=== PATIENT | female | born 1935 | race Caucasian/White ===

== ENCOUNTER 2017-12-28 10:58 | Emergency (ER) | payer MEDICARE ==
[~2017-12-28] VITALS: Ht 165.1 cm; Wt 96.2 kg
[~2017-12-28 10:58] MED LIST: ALPR.25; ALPR.25 PO; ATEN25 PO; CALCAVITD PO; CIPR500 PO; CRANBERRY250 MG; ENAL10 PO; HYDCHL12.5 PO; LEVSOD100 PO; LISI5; METF500C PO; METO10 PO; OMEP20ER PO; ONDA8; OXYACE5T PO; PROBIOTIC1 EAC1; SIMV40 PO; [UNRECOGNIZED DRUG - REMARK]
[2017-12-28] MEDS ORDERED: CEPH250A PO (11:23)
[2017-12-28 11:25] LABS: BASOPHILS ABSOLUTE AUTO 0.02 K/mm3 (0.00-0.23); BASOPHILS PERCENT AUTO 0 % (0-2); EOSINOPHILS ABSOLUTE AUTO 0.01 K/mm3 (0.00-0.68); EOSINOPHILS PERCENT AUTO 0 % (0-6); Hematocrit 39.7 % (33.0-51.0); Hemoglobin 13.5 g/dL (11.5-16.0); IMMATURE GRAN ABSOLUTE AUTO 0.02 K/mm3 (0.00-0.10); IMMATURE GRAN PERCENT AUTO 0 % (0-1); LYMPHOCYTES ABSOLUTE AUTO 1.07 K/mm3 (0.84-5.20); LYMPHOCYTES PERCENT AUTO 16 % (21-46); MONOCYTES ABSOLUTE AUTO 0.78 K/mm3 (0.16-1.47); MONOCYTES PERCENT AUTO 12 % (4-13); Mean Corpuscular HGB 27.9 pg (26.0-34.0); Mean Corpuscular Volume 82 fL (80-100); Mean Platelet Volume 8.7 fL (9.1-12.4); NEUTROPHILS ABSOLUTE AUTO 4.75 K/mm3 (1.96-9.15); NEUTROPHILS PERCENT AUTO 71 % (41-73); Platelet Count 199 K/mm3 (150-400); RDW Coefficient Variation 13.6 % (11.7-14.2); RDW Standard Deviation 40.5 fL (35.1-46.3); Red Blood Cell Count 4.84 M/mm3 (3.80-5.20); White Blood Cell Count 6.65 K/mm3 (4.00-11.30)
[2017-12-28 11:41] LABS: Alanine Aminotransfer (ALT/SGP 20 U/L (12-78); Albumin, Blood 3.3 g/dL (3.4-5.0); Albumin/Globulin Ratio 0.8 (0.8-1.8); Alk Phos 68 U/L (50-136); Anion Gap 10 mmol/L (6-16); Aspartate Aminotrans (AST/SGOT 26 U/L (12-37); Bilirubin, Total 0.4 mg/dL (0.1-1.0); Blood Urea Nitrogen 12 mg/dL (8-24); Bun/Creatinine Ratio 19.9 (12.0-20.0); CO2, Blood 29 mmol/L (21-32); Calcium, Blood 8.5 mg/dL (8.5-10.1); Chloride, Blood 89 mmol/L (98-108); Glomerular Filtration Rate >60 (60-); Glucose, Blood 109 mg/dL (70-99); Potassium, Blood 3.3 mmol/L (3.5-5.5); Sodium, Blood 128 mmol/L (136-145); Total Protein, Blood 7.3 g/dL (6.4-8.2); Troponin I <0.015 ng/mL (0.000-0.040)
[2017-12-28 13:15] LABS: Source, Urine Clean Catch
[2017-12-28 13:19] LABS: Bilirubin, Urine Neg (Neg); Blood, Urine 2+ (Neg); Glucose Qualitative, Urine Neg (Neg); Ketones, Urine 2+ (Neg); Leukocyte Esterase, Urine 3+ (Neg); Nitrite, Urine Neg (Neg); Protein, Urine Neg (Neg); Specific Gravity, Urine 1.005 (1.003-1.022); Urobilinogen, Urine NORM (Normal)
[2017-12-28 13:22] LABS: Appearance, Urine Cloudy (Clear); Color, Urine Yellow (P-Yellow)
[2017-12-28 13:26] LABS: Bacteria Few /hpf; Red Blood Cells, Urine 0-2 /hpf (0-2); Squamous Epithelial Cells Many /hpf (Few)
== END 2017-12-28 14:01 | disposition home or self-care (01) ==
LOC: ER 10:58
PROVIDERS: Emergency Medicine
DX: R10.84 Generalized abdominal pain (principal); E87.1 Hypo-osmolality and hyponatremia; E87.6 Hypokalemia; I10 Essential (primary) hypertension; Z87.891 Personal history of nicotine dependence; Z88.2 Allergy status to sulfonamides; Z88.8 Allergy status to other drugs, medicaments and biological substances; Z88.5 Allergy status to narcotic agent; Z88.1 Allergy status to other antibiotic agents; Z79.899 Other long term (current) drug therapy; Z79.84 Long term (current) use of oral hypoglycemic drugs; Z79.2 Long term (current) use of antibiotics
CPT/HCPCS: 36415; 74177; 80053; 81001; 83690; 84484; 85025; 87077; 87086; 87186; 93005; 93010; 96360; 96361; 99285-25; J7030; Q9967

== ENCOUNTER 2019-02-11 16:05 | Emergency (ER) | payer MEDICARE ==
[~2019-02-11] VITALS: Ht 167.6 cm; Wt 94.8 kg
[~2019-02-11 16:05] MED LIST changes: +CEPH250A PO; -HYDCHL12.5 PO; -LEVSOD100 PO; -METF500C PO
== END 2019-02-11 22:58 | disposition home or self-care (01) ==
LOC: ER 16:05
DX: S00.83XA Contusion of other part of head, initial encounter (principal); S50.312A Abrasion of left elbow, initial encounter; M25.552 Pain in left hip; I10 Essential (primary) hypertension; F41.0 Panic disorder [episodic paroxysmal anxiety]; Z87.891 Personal history of nicotine dependence; Z88.8 Allergy status to other drugs, medicaments and biological substances; Z88.1 Allergy status to other antibiotic agents; Z88.2 Allergy status to sulfonamides; Z88.5 Allergy status to narcotic agent; Z79.899 Other long term (current) drug therapy; Z79.84 Long term (current) use of oral hypoglycemic drugs; W01.10XA Fall on same level from slipping, tripping and stumbling with subsequent striking against unspecified object, initial encounter
CPT/HCPCS: 72192; 73502; 73600; 96374; 96375; 96376; 99284-25; A9270; A9270-GY; J1170; J2405

== ENCOUNTER 2019-02-22 10:48 | Inpatient (IN) | payer MEDICARE ==
[~2019-02-22] VITALS: Ht 165.1 cm; Wt 93.4 kg
[2019-02-22] MEDS ORDERED: LEVSOD100 PO (13:23)
[2019-02-22] MEDS ORDERED: METF500 PO (13:24)
[2019-02-22] MEDS ORDERED: HYDCHL12.5 PO (13:24)
[2019-02-22] MEDS ORDERED: LOSARTAN POTASS50 MG PO (13:25)
[2019-02-22] MEDS ORDERED: METO50ER PO (13:25)
[2019-02-22 13:34] LABS: BASOPHILS ABSOLUTE AUTO 0.04 K/mm3 (0.00-0.23); BASOPHILS PERCENT AUTO 0 % (0-2); EOSINOPHILS ABSOLUTE AUTO 0.02 K/mm3 (0.00-0.68); EOSINOPHILS PERCENT AUTO 0 % (0-6); Hematocrit 39.7 % (33.0-51.0); Hemoglobin 13.2 g/dL (11.5-16.0); IMMATURE GRAN ABSOLUTE AUTO 0.04 K/mm3 (0.00-0.10); IMMATURE GRAN PERCENT AUTO 0 % (0-1); LYMPHOCYTES ABSOLUTE AUTO 1.39 K/mm3 (0.84-5.20); LYMPHOCYTES PERCENT AUTO 12 % (21-46); MONOCYTES ABSOLUTE AUTO 0.72 K/mm3 (0.16-1.47); MONOCYTES PERCENT AUTO 6 % (4-13); Mean Corpuscular HGB 28.4 pg (26.0-34.0); Mean Corpuscular HGB Conc 33.2 g/dL (31.5-36.5); Mean Corpuscular Volume 86 fL (80-100); Mean Platelet Volume 9.1 fL (9.1-12.4); NEUTROPHILS ABSOLUTE AUTO 9.43 K/mm3 (1.96-9.15); NEUTROPHILS PERCENT AUTO 81 % (41-73); Platelet Count 289 K/mm3 (150-400); RDW Coefficient Variation 14.2 % (11.7-14.2); RDW Standard Deviation 43.9 fL (35.1-46.3); Red Blood Cell Count 4.64 M/mm3 (3.80-5.20); White Blood Cell Count 11.64 K/mm3 (4.00-11.30)
[2019-02-22 13:49] LABS: International Normalized Ratio 0.98; Prothrombin Time Results 10.4 Sec (9.7-11.5)
[2019-02-22 13:53] LABS: Alanine Aminotransfer (ALT/SGP 16 U/L (12-78); Albumin, Blood 3.5 g/dL (3.4-5.0); Albumin/Globulin Ratio 1.1 (0.8-1.8); Alk Phos 64 U/L (50-136); Anion Gap 7 mmol/L (6-16); Aspartate Aminotrans (AST/SGOT 16 U/L (12-37); Bilirubin, Total 0.6 mg/dL (0.1-1.0); Blood Urea Nitrogen 23 mg/dL (8-24); Bun/Creatinine Ratio 29.9 (12.0-20.0); CO2, Blood 29 mmol/L (21-32); Calcium, Blood 9.5 mg/dL (8.5-10.1); Chloride, Blood 97 mmol/L (98-108); Creatinine, Blood 0.77 mg/dL (0.40-1.00); Globulin, Blood 3.2 g/dL (2.2-4.0); Glomerular Filtration Rate >60 (60-); Glucose, Blood 96 mg/dL (70-99); Potassium, Blood 3.4 mmol/L (3.5-5.5); Sodium, Blood 133 mmol/L (136-145); Total Protein, Blood 6.7 g/dL (6.4-8.2)
--- NOTE | 2019-02-22 18:05 | NUR ---
SUMMARY PT ARRIVED TO UNIT FROM ED. TRANSFERRED TO BED FROM [facility] USING SLIDER SHEET. PT TOO PAINFUL TO ROLL AND REMOVE ALL EXTRA LINENS. HAS BRUISING TO L FOREHEAD, LUE AND LLE. LLE EXTERNALLY ROTATED. PEDAL PULSES THIN AND THREADY. SKIN WARM AND PINK. LCA. HRR. MEDICATED PER ORDERS FOR PAIN W/25 MCG FENTANYL IV. FAMILY AT BEDSIDE. CALL LIGHT IN REACH.
--- NOTE | 2019-02-22 20:44 | NUR ---
PT TO IMAGING.
--- NOTE | 2019-02-23 00:26 | NUR ---
DR TODD BEEN NOTIFIED OF CT RESULTS. NO NEW ORDERS.
[2019-02-23 04:36] LABS: BASOPHILS ABSOLUTE AUTO 0.03 K/mm3 (0.00-0.23); BASOPHILS PERCENT AUTO 0 % (0-2); EOSINOPHILS ABSOLUTE AUTO 0.03 K/mm3 (0.00-0.68); EOSINOPHILS PERCENT AUTO 0 % (0-6); Hematocrit 36.7 % (33.0-51.0); Hemoglobin 12.1 g/dL (11.5-16.0); IMMATURE GRAN ABSOLUTE AUTO 0.02 K/mm3 (0.00-0.10); IMMATURE GRAN PERCENT AUTO 0 % (0-1); LYMPHOCYTES ABSOLUTE AUTO 1.59 K/mm3 (0.84-5.20); LYMPHOCYTES PERCENT AUTO 22 % (21-46); MONOCYTES ABSOLUTE AUTO 0.62 K/mm3 (0.16-1.47); MONOCYTES PERCENT AUTO 9 % (4-13); Mean Corpuscular HGB 27.9 pg (26.0-34.0); Mean Corpuscular Volume 85 fL (80-100); Mean Platelet Volume 8.9 fL (9.1-12.4); NEUTROPHILS ABSOLUTE AUTO 4.95 K/mm3 (1.96-9.15); NEUTROPHILS PERCENT AUTO 68 % (41-73); Platelet Count 253 K/mm3 (150-400); RDW Coefficient Variation 14.1 % (11.7-14.2); RDW Standard Deviation 43.6 fL (35.1-46.3); Red Blood Cell Count 4.34 M/mm3 (3.80-5.20); White Blood Cell Count 7.24 K/mm3 (4.00-11.30)
[2019-02-23 04:53] LABS: Anion Gap 6 mmol/L (6-16); Blood Urea Nitrogen 20 mg/dL (8-24); Bun/Creatinine Ratio 31.1 (12.0-20.0); CO2, Blood 29 mmol/L (21-32); Calcium, Blood 8.9 mg/dL (8.5-10.1); Chloride, Blood 99 mmol/L (98-108); Creatinine, Blood 0.64 mg/dL (0.40-1.00); Glomerular Filtration Rate >60 (60-); Glucose, Blood 96 mg/dL (70-99); Potassium, Blood 3.4 mmol/L (3.5-5.5); Sodium, Blood 134 mmol/L (136-145)
--- NOTE | 2019-02-23 05:03 | NUR ---
SHIFT SUMMARY PT HAD CT EARLIER THIS SHIFT. PT BEEN MED PRN PAIN, REPORTS MUCH MORE COMF THIS AM. PT WAS CONFUSED AT FIRST WHEN WAKING UP BUT REORIENTS WELL. BED ALARM IN PLACE. FAMILY STAYED OVERNIGHT, ALSO RESTED WELL OFF AND ON. PT DID NOT ATTEMPT OOB. PT HAS 18G IV IN R HAND INFUSING WELL. PT BEEN NPO AFTER MN. DR TODD WAS NOTIFIED OF CT RESULT. PT/FAMILY ASSISTED WITH ADL'S PRN. PAS/BED ALARM IN PLACE.
--- NOTE | 2019-02-23 05:31 | NUR ---
PT MEDS HELD, BEEN NPO AFTER MN.
--- NOTE | 2019-02-23 13:41 | NUR ---
INTO [facility] VIA BED. PT REPORTS 8 LEFT HIP PAIN-DESPITE BEING MEDICATED WITH FENTANYL JUST PRIOR TO DEPARTURE TO [facility]-SEE EMAR. HISTORY AND ALLERGIES REVIEWED. NPO STATUS CONFIRMED.LUNGS CLEAR-SATS>90% ON RA.
--- NOTE | 2019-02-23 14:27 | NUR ---
PT REPORTS 8/10 LEFT HIP PAIN. MED WITH OXYCODONE 10 MG PO FOR PAIN-SEE EMAR.
--- NOTE | 2019-02-23 18:49 | NUR ---
PT ARRIVED TO UNIT FROM OR AT 1845. A&O, VSS, AND DECLINES ANY PAIN OR NAUSEA. FAMILY AT BEDSIDE AND CALL LIGHT WITHIN REACH.
[2019-02-24 04:25] LABS: BASOPHILS ABSOLUTE AUTO 0.04 K/mm3 (0.00-0.23); BASOPHILS PERCENT AUTO 1 % (0-2); EOSINOPHILS ABSOLUTE AUTO 0.06 K/mm3 (0.00-0.68); EOSINOPHILS PERCENT AUTO 1 % (0-6); Hemoglobin 10.1 g/dL (11.5-16.0); IMMATURE GRAN ABSOLUTE AUTO 0.03 K/mm3 (0.00-0.10); IMMATURE GRAN PERCENT AUTO 0 % (0-1); LYMPHOCYTES PERCENT AUTO 15 % (21-46); MONOCYTES ABSOLUTE AUTO 0.81 K/mm3 (0.16-1.47); MONOCYTES PERCENT AUTO 10 % (4-13); Mean Corpuscular HGB 27.9 pg (26.0-34.0); Mean Corpuscular HGB Conc 32.6 g/dL (31.5-36.5); Mean Corpuscular Volume 86 fL (80-100); Mean Platelet Volume 9.5 fL (9.1-12.4); NEUTROPHILS ABSOLUTE AUTO 5.68 K/mm3 (1.96-9.15); NEUTROPHILS PERCENT AUTO 73 % (41-73); Platelet Count 212 K/mm3 (150-400); RDW Coefficient Variation 14.2 % (11.7-14.2); RDW Standard Deviation 44.3 fL (35.1-46.3); Red Blood Cell Count 3.62 M/mm3 (3.80-5.20); White Blood Cell Count 7.82 K/mm3 (4.00-11.30)
[2019-02-24 04:47] LABS: Albumin, Blood 2.6 g/dL (3.4-5.0); Anion Gap 4 mmol/L (6-16); Blood Urea Nitrogen 15 mg/dL (8-24); Bun/Creatinine Ratio 22.8 (12.0-20.0); CO2, Blood 29 mmol/L (21-32); Calcium, Blood 7.8 mg/dL (8.5-10.1); Chloride, Blood 100 mmol/L (98-108); Creatinine, Blood 0.66 mg/dL (0.40-1.00); Glomerular Filtration Rate >60 (60-); Glucose, Blood 122 mg/dL (70-99); Magnesium, Blood 1.4 mg/dL (1.6-2.4); Phosphorus, Blood 2.6 mg/dL (2.5-4.9); Potassium, Blood 3.1 mmol/L (3.5-5.5); Sodium, Blood 133 mmol/L (136-145)
--- NOTE | 2019-02-24 08:27 | NUR ---
SUMMARY PT DID WELL THROUGH THE NIGHT. DRSG REMAINS C/D/I. CIRC WNL. PAIN MANAGED WITH PO PAIN MEDS. PT IS TOLERATING PO INTAKE. PT STOOD AT THE BEDSIDE WITH 2 PERSON ASSIST. WESTLEY REMAINS IN PLACE. PT EDUCATED ABOUT THERAPY EXPECTATIONS THIS AM. IS AT THE BEDSIDE. CALL LIGHT IN REACH. REPORT GIVEN EUNICE
--- NOTE | 2019-02-24 13:46 | NUR ---
Initial Visit: Pt post op hip fracture repair. Pt is alert, oriented, appropriate. She states that her pain is increased right now, due to working out with physical therapy. She describes herself as "determined," and "tough." She states that her granddaughter will be able to help her at home; it does not appear that she is willing to go to SNF for rehab. She reports that her granddaughter is a IRRIGATION INSTALLATION SPECIALIST and will "make sure I do my stuff." Reviewed advance directives. She has heard of the term. Purpose of document is discussed. Educated on appointment of healthcare internet sales representative within the document. She is wanting to review this later, when she feels better. Nurse is in the room to give her pain medication. Will remain available.
--- NOTE | 2019-02-24 16:02 | NUR ---
TOPICS WERE DISCUSSED WITH MARK MORE THAN ONCE, SHE STATED REMEMBERING DISCUSSING THEM BEFORE AFTER THE TOPIC WAS REITERATED. SHE RESPONDED WELL TO SUGGESTION AND APPRECIATED EXPLANATIONS TO THE "WHY" BEHIND RECOMMENDATIONS, POLICIES, ETC.
--- NOTE | 2019-02-24 16:05 | NUR ---
SHIFT SUMMARY: MARK IS HERE AFTER EXPERIENCING A FALL IN THE PARKING [place] RESULTING IN A SMALL BRAIN BLEED AND FRACTURED LEFT FEMORAL HEAD WHICH WAS SURGICALLY REPAIRED BY DR. PADRON WITH A LEFT GEMINI HIP ARTHROPLASTY. SHE IS ALERT AND ORIENTED, JUST STATES THAT SHE ISN'T SURE OF THE DAY BUT KNOWS THAT IT IS FEBRUARY 2019. SHE HAS HAD SOME DIFFICULTIES WITH NAUSEA THIS SHIFT REQUIRING TWO DOSES OF ZOFRAN. SHE DID WORK WITH THERAPY. HER HAS BEEN AT BEDSIDE EXCEPT WHEN THERAPY WORKS WITH HER STATING THAT IT BOTHERS HIM WHEN THEY ARE WORKING WITH HER. SHE REQUIRIES ONE TO TWO PEOPLE TO HELP HER TRANSFER, MODERATE ASSIST. SHE REQUIRES TWO PEOPLE TO ASSIST HER TO REPOSITION IN BED. CHRISTY REMAINS IN PLACE DUE TO HER CONCERNS THAT SHE WOULD NOT BE ABLE TO MAKE IT TO THE BEDSIDE COMMODE BEFORE HAVING AN ACCIDENT. SCDs IN PLACE. SHE IS LYING IN BED WITH HER CALL LIGHT IN REACH. SHE USES HER CALL LIGHT APPROPRIATELY. SHE IS ABLE TO MAKE HER NEEDS KNOWN.
[2019-02-25 04:16] LABS: BASOPHILS ABSOLUTE AUTO 0.05 K/mm3 (0.00-0.23); BASOPHILS PERCENT AUTO 1 % (0-2); EOSINOPHILS ABSOLUTE AUTO 0.08 K/mm3 (0.00-0.68); EOSINOPHILS PERCENT AUTO 1 % (0-6); Hematocrit 31.6 % (33.0-51.0); Hemoglobin 10.2 g/dL (11.5-16.0); IMMATURE GRAN ABSOLUTE AUTO 0.03 K/mm3 (0.00-0.10); IMMATURE GRAN PERCENT AUTO 0 % (0-1); LYMPHOCYTES ABSOLUTE AUTO 1.07 K/mm3 (0.84-5.20); LYMPHOCYTES PERCENT AUTO 11 % (21-46); MONOCYTES ABSOLUTE AUTO 1.01 K/mm3 (0.16-1.47); MONOCYTES PERCENT AUTO 10 % (4-13); Mean Corpuscular HGB Conc 32.3 g/dL (31.5-36.5); Mean Corpuscular Volume 87 fL (80-100); Mean Platelet Volume 9.3 fL (9.1-12.4); NEUTROPHILS ABSOLUTE AUTO 7.59 K/mm3 (1.96-9.15); NEUTROPHILS PERCENT AUTO 77 % (41-73); Platelet Count 232 K/mm3 (150-400); RDW Coefficient Variation 14.2 % (11.7-14.2); RDW Standard Deviation 45.7 fL (35.1-46.3); Red Blood Cell Count 3.64 M/mm3 (3.80-5.20); White Blood Cell Count 9.83 K/mm3 (4.00-11.30)
[2019-02-25 04:33] LABS: Albumin, Blood 2.5 g/dL (3.4-5.0); Anion Gap 6 mmol/L (6-16); Blood Urea Nitrogen 11 mg/dL (8-24); Bun/Creatinine Ratio 15.1 (12.0-20.0); CO2, Blood 28 mmol/L (21-32); Calcium, Blood 8.3 mg/dL (8.5-10.1); Chloride, Blood 96 mmol/L (98-108); Creatinine, Blood 0.73 mg/dL (0.40-1.00); Glomerular Filtration Rate >60 (60-); Glucose, Blood 89 mg/dL (70-99); Potassium, Blood 3.9 mmol/L (3.5-5.5); Sodium, Blood 130 mmol/L (136-145)
--- NOTE | 2019-02-25 04:36 | NUR ---
SHIFT SUMMARY: PT POD #2 FOR LEFT GEMINI HIP. VS WNL. PT A&OX4. DRESSINGS TO LEFT HIP CDI. PAIN MANAGED WITH ICE PACK AND 10MG OXY PER EMAR. PT RESTING MOST OF SHIFT. 1-2 MODERATE ASSIST FOR ALL TRANSFERS. DENIES N/V AND KANDI PO. CHRISTY PATENT AND DRAINING DARK YELLOW URINE. AT BEDSIDE.
--- NOTE | 2019-02-25 16:32 | NUR ---
RESTING IN BED WITH EYES CLOSED. BREATHS EVEN AND UNLABORED.
--- NOTE | 2019-02-25 18:03 | NUR ---
TRANSFER SUMMARY: VSS. A&0 X 4. LEFT VIA TRANSPORT WITH ALL PERSONAL POSSESSIONS. AND GRANDDAUGHTER MEETING PT AT [facility] WITH OTHER PERSONAL POSSESSIONS. IV D/C'D. REPORT CALLED TO MELISSA. DISCHARGE PACKET GIVEN TO TRANSPORT WITH ONE NARCOTIC PRESCRIPTION.
== END 2019-02-25 17:30 | DRG 956 ==
LOC: ER 10:48 → SURS 17:12
PROVIDERS: Emergency Medicine; Internal Medicine; Orthopaedic Surgery; ADMIT Internal Medicine
PROC: 0SRS0JA Replacement of Left Hip Joint, Femoral Surface with Synthetic Substitute, Uncemented, Open Approach (ICD-10-PCS; principal; 2019-02-23 14:00)
DX: S72.002A Fracture of unspecified part of neck of left femur, initial encounter for closed fracture (principal); S06.6X0A Traumatic subarachnoid hemorrhage without loss of consciousness, initial encounter; E87.1 Hypo-osmolality and hyponatremia; W19.XXXA Unspecified fall, initial encounter; I10 Essential (primary) hypertension; E03.9 Hypothyroidism, unspecified; K21.9 Gastro-esophageal reflux disease without esophagitis; E11.9 Type 2 diabetes mellitus without complications; E83.42 Hypomagnesemia; E83.39 Other disorders of phosphorus metabolism; I48.0 Paroxysmal atrial fibrillation; E87.6 Hypokalemia; Z88.6 Allergy status to analgesic agent; Z88.1 Allergy status to other antibiotic agents; Z88.5 Allergy status to narcotic agent; Z88.2 Allergy status to sulfonamides; Z88.8 Allergy status to other drugs, medicaments and biological substances; Z79.84 Long term (current) use of oral hypoglycemic drugs; Z79.899 Other long term (current) drug therapy; Z87.891 Personal history of nicotine dependence
CPT/HCPCS: 36415; 51702; 70450; 71045; 72170; 73502; 73562-LT; 80048; 80053; 80069; 82947; 83735; 85025; 85027; 85610; 88305; 88311; 93005; 93010; 96374-59; 97110; 97162; 97166; 97530; 99285-25; A9270; C1776; J0171; J0690; J0735; J1170; J1650; J1815; J1885; J2250; J2405; J2704; J2795; J3010; J3475; J7030; J7120

== ENCOUNTER → 2019-05-14 | Outpatient (CLI) | payer MEDICARE ==
[~2019-05-14] MED LIST changes: +HYDCHL12.5 PO; +LEVSOD100 PO; +LOSARTAN POTASS50 MG PO; +METF500 PO; +METO50ER PO
[2019-05-18 16:07] LABS: HPV 16 Negative (Negative); HPV 18 Negative (Negative); HPV OTHER HR TYPES Negative (Negative)
== END | disposition home or self-care (01) ==
LOC: LAB SHORT 13:49 → LAB 13:49
PROVIDERS: Obstetrics & Gynecology Gynecology
DX: Z91.89 Other specified personal risk factors, not elsewhere classified (principal)
CPT/HCPCS: 87624; G0123

== ENCOUNTER 2019-10-08 15:41 | Inpatient (IN) | payer MEDICARE, OTHER ==
[~2019-10-08] VITALS: Ht 162.6 cm; Wt 92.8 kg
[~2019-10-08 15:41] MED LIST changes: -AMOXICILLIN-CL1 EACH; -VISBIOME 112.51 EACH PO
[2019-10-08 16:34] LABS: Source, Urine Clean Catch
[2019-10-08 16:43] LABS: Blood, Urine 2+ (Neg); Glucose Qualitative, Urine Neg (Neg); Ketones, Urine 1+ (Neg); Leukocyte Esterase, Urine 2+ (Neg); Nitrite, Urine Neg (Neg); Protein, Urine 2+ (Neg); Urobilinogen, Urine 3+ (Normal)
[2019-10-08 17:16] LABS: Appearance, Urine Hazy (Clear); Bilirubin, Urine 2+ (Neg); Color, Urine Yellow (P-Yellow)
[2019-10-08 17:18] LABS: Bacteria Many /hpf; Mucus Light (0-Heavy); Squamous Epithelial Cells Many /hpf (Few)
[2019-10-08 18:58] LABS: Magnesium, Blood 1.7 mg/dL (1.6-2.4); Troponin I <0.015 ng/mL (0.000-0.040)
[2019-10-08 20:54] LABS: Source, Urine Catheter
[2019-10-08 20:58] LABS: Bilirubin, Urine Neg (Neg); Blood, Urine 2+ (Neg); Glucose Qualitative, Urine Neg (Neg); Ketones, Urine 2+ (Neg); Leukocyte Esterase, Urine 1+ (Neg); Nitrite, Urine Neg (Neg); Protein, Urine 1+ (Neg); Urobilinogen, Urine 2+ (Normal)
[2019-10-08 21:08] LABS: Appearance, Urine Clear (Clear); Color, Urine Yellow (P-Yellow)
[2019-10-08 21:09] LABS: Red Blood Cells, Urine 0-2 /hpf (0-2); Squamous Epithelial Cells Many /hpf (Few)
[2019-10-08 21:10] LABS: Bacteria Mod /hpf
[2019-10-08 21:25] LABS: International Normalized Ratio 1.1; Prothrombin Time Results 11.7 Sec (9.7-11.5)
--- NOTE | 2019-10-08 22:30 | NUR ---
ASSUMED PT CARE FROM ED AT 2144 PT ARRIVED ON UNIT PCU STATUS SECONDARY TO UROSEPSIS WITH ELEVATED LFT'S. PT IS ALERT AND ORIENTED AND ABLE TO MAKE HER NEEDS KNOWN. PT STATES SHE IS FORGETFUL AT TIMES. ROCEPHIN INFUSING UPON ARRIVAL. PT HAS ORDERS FOR ANOTHER 1L BAG WO FOLLOWED BY MAINTENANCE FLUIDS AT 75MLS/HR. 20G TO R AC THAT IS PATENT AND INFUSING. LUNG SOUNDS ARE CLEAR T/O ALL LOBES. PT IS IN NSR WITH OCCASIONAL PVC'S WITH HR 70-80'S WITH STABLE BP'S; SEE FLOWSHEET. PT IN CONTACT ISOLATION PRECAUTIONS D/T GI PANEL THAT HAS YET TO BE COLLECTED. PT STATES SHE WAS HAVING LOOSE STOOL AT HOME, BUT NONE SINCE ARRIVAL TO HOSPITAL. PT APPEARS COMFORTABLE AT THIS TIME AND IN NO DISTRESS. WILL CONTINUE TO MONITOR. CALL LIGHT WITHIN REACH.
[2019-10-09 02:12] LABS: Source, Urine Clean Catch
[2019-10-09 02:15] LABS: Blood, Urine 1+ (Neg); Glucose Qualitative, Urine Neg (Neg); Ketones, Urine 2+ (Neg); Leukocyte Esterase, Urine 1+ (Neg); Nitrite, Urine Neg (Neg); Protein, Urine 1+ (Neg); Urobilinogen, Urine 2+ (Normal)
[2019-10-09 02:30] LABS: Appearance, Urine Clear (Clear); Bilirubin, Urine 1+ (Neg); Color, Urine Yellow (P-Yellow)
[2019-10-09 02:31] LABS: Bacteria Rare /hpf; Red Blood Cells, Urine 0-2 /hpf (0-2); Squamous Epithelial Cells Rare /hpf (Few); White Blood Cells, Urine 0-2 /hpf (0-5)
[2019-10-09 03:29] LABS: BASOPHILS ABSOLUTE AUTO 0.02 K/mm3 (0.00-0.23); BASOPHILS PERCENT AUTO 0 % (0-2); EOSINOPHILS ABSOLUTE AUTO 0.03 K/mm3 (0.00-0.68); EOSINOPHILS PERCENT AUTO 0 % (0-6); Hematocrit 34.2 % (33.0-51.0); Hemoglobin 11.4 g/dL (11.5-16.0); IMMATURE GRAN ABSOLUTE AUTO 0.02 K/mm3 (0.00-0.10); IMMATURE GRAN PERCENT AUTO 0 % (0-1); LYMPHOCYTES ABSOLUTE AUTO 0.56 K/mm3 (0.84-5.20); LYMPHOCYTES PERCENT AUTO 7 % (21-46); MONOCYTES ABSOLUTE AUTO 0.77 K/mm3 (0.16-1.47); MONOCYTES PERCENT AUTO 10 % (4-13); Mean Corpuscular HGB 27.9 pg (26.0-34.0); Mean Corpuscular HGB Conc 33.3 g/dL (31.5-36.5); Mean Corpuscular Volume 84 fL (80-100); Mean Platelet Volume 8.8 fL (9.1-12.4); NEUTROPHILS PERCENT AUTO 82 % (41-73); Platelet Count 196 K/mm3 (150-400); RDW Coefficient Variation 15.4 % (11.7-14.2); RDW Standard Deviation 47.7 fL (35.1-46.3); Red Blood Cell Count 4.08 M/mm3 (3.80-5.20)
[2019-10-09 03:49] LABS: Alanine Aminotransfer (ALT/SGP 428 U/L (12-78); Albumin, Blood 2.8 g/dL (3.4-5.0); Albumin/Globulin Ratio 0.9 (0.8-1.8); Alk Phos 118 U/L (50-136); Anion Gap 9 mmol/L (6-16); Aspartate Aminotrans (AST/SGOT 235 U/L (12-37); Bilirubin, Total 1.6 mg/dL (0.1-1.0); Blood Urea Nitrogen 12 mg/dL (8-24); Bun/Creatinine Ratio 17.9 (12.0-20.0); CO2, Blood 24 mmol/L (21-32); Calcium, Blood 7.9 mg/dL (8.5-10.1); Chloride, Blood 101 mmol/L (98-108); Creatinine, Blood 0.67 mg/dL (0.40-1.00); Glomerular Filtration Rate >60 (60-); Glucose, Blood 94 mg/dL (70-99); Potassium, Blood 3.1 mmol/L (3.5-5.5); Sodium, Blood 134 mmol/L (136-145); Total Protein, Blood 5.8 g/dL (6.4-8.2)
--- NOTE | 2019-10-09 05:22 | NUR ---
END OF SHIFT SUMMARY NO SIGNIFICANT CHANGES SINCE LAST ENTRY. PT REMAINS ALERT AND ORIENTED, PLEASANT AND COOPERATIVE WITH CARES. NS INFUSING AT 75MLS/HR. PT UP TO VOID X1 WITH 300CC OUT; DARK GLORY IN COLOR. UA SENT PER ORDERS. PT REQUIRES MINIMAL ASSISTANCE D/T WEAKNESS IN BILATERAL LEGS; UP TO BEDSIDE COMMODE FOR SAFETY. PT REMAINS IN NSR WITH PVC'S; HR 70'S. BP'S STABLE; SEE FLOWSHEET. CALL LIGHT WITHIN REACH; PT ABLE TO MAKE NEEDS KNOWN. WILL CONTINUE TO MONITOR UNTIL REPORT IS HANDED OFF TO ONCOMING RN.
--- NOTE | 2019-10-09 11:49 | NUR ---
CARE ASSUMED ASSESSMENT COMPLETED, PT DENIES ABD PAIN AND NAUSEA AT THIS TIME. ABD SOFT, NONTENDER, BT PRESENT. NO BM'S SINCE ADMISSION. HR 50'S-60'S SBR WITH PVC'S, OTHER VSS, PT AFEBRILE. PT ALERT AND ORIENTED, PLEASANT AND COOPERATIVE, NO CONFUSION OR FORGETFULNESS NOTED AT THIS TIME. NS INFUSING PER ORDERS, FLAGYL ADMINISTERED. DR. FREDERICK IN TO SEE PATIENT, SATUS NOW MEDICAL WITHOUT TELE. PT ASSISTED UP TO BSC X1 TO VOID, NO BM. GAIT STEADY WITH WALKER AND SBA. PT NAPPING ON AND OFF, HAS SPOKEN TO ON THE PHONE, REMAINS PLEASANT AND COOPERATIVE. ABLE TO USE CALL LIGHT APPROPRIATELY AND MAKE NEEDS KNOWN. REPOSITIONS SELF IN BED.
--- NOTE | 2019-10-09 13:09 | NUR ---
MEDICAL FLOOR TRANSFER 1300: REPORT TO EUNICE PASTRANA. PT TO ROOM 312 WITH MEDS, CHART, AND BELONGINGS. GAIT STEADY FOR TRANSFER FROM BED TO , PT DENIES C/O.
--- NOTE | 2019-10-09 14:54 | NUR ---
1300 ASSUMED CARE OF PT. GOT REPORT FROM YADI DAWSON. PT ABLE TO TRANSFER TO BED WITH SBA. SHE IS ALERT AND ORIENTED AND WAS ABLE TO AMBULATE TO THE RESTROOM. SHE HAS NO COMLAINTS OF PAIN. IV RESTARTED PER ORDER. CALL LIGHT WITHIN REACH.
--- NOTE | 2019-10-09 17:32 | NUR ---
PT HAS HAD NO COMPLAINTS THIS SHIFT. PT MOVED TO REGULAR DIET. SHE IS ALERT AND ORIENTED AND ALBE TO EXPRESS ANY NEEDS. SHE IS A SBA TO THE RESTROOM. NO ACUTE CHANGES.
[2019-10-10 05:24] LABS: Alanine Aminotransfer (ALT/SGP 242 U/L (12-78); Albumin, Blood 2.7 g/dL (3.4-5.0); Albumin/Globulin Ratio 0.8 (0.8-1.8); Alk Phos 107 U/L (50-136); Anion Gap 8 mmol/L (6-16); Aspartate Aminotrans (AST/SGOT 73 U/L (12-37); Bilirubin, Total 0.8 mg/dL (0.1-1.0); Blood Urea Nitrogen 8 mg/dL (8-24); Bun/Creatinine Ratio 12.3 (12.0-20.0); CO2, Blood 25 mmol/L (21-32); Calcium, Blood 8.1 mg/dL (8.5-10.1); Chloride, Blood 103 mmol/L (98-108); Creatinine, Blood 0.65 mg/dL (0.40-1.00); Globulin, Blood 3.2 g/dL (2.2-4.0); Glomerular Filtration Rate >60 (60-); Glucose, Blood 96 mg/dL (70-99); Potassium, Blood 3.1 mmol/L (3.5-5.5); Sodium, Blood 136 mmol/L (136-145); Total Protein, Blood 5.9 g/dL (6.4-8.2)
[2019-10-10 07:07] LABS: HBSAG SCREEN Negative (Negative); HEP A AB, IGM Negative (Negative); HEP B CORE AB, IGM Negative (Negative); HEP C VIRUS AB <0.1 (0.0-0.9)
--- NOTE | 2019-10-10 07:24 | NUR ---
SHIFT SUMMARY PATIENT ALERT AND ORIENTED X3. SET OFF HER BED ALARM SEVERAL TIMES OVER THE NIGHT TRYING TO USE THE RESTROOM. PATIENT ABLE TO AMBULATE WELL USING A WALKER. IV PATENT AND FLUSHED. BED IN LOWEST POSITION WITH WHEELS LOCKED AND ALARM ON. CALL LIGHT WITHIN REACH. REPORT GIVEN TO ONCOMING RN.
[2019-10-10] MEDS ORDERED: VISBIOME 112.51 EACH PO (11:36)
[2019-10-10] MEDS ORDERED: AMOXICILLIN-CL1 EACH (11:37)
--- NOTE | 2019-10-10 13:13 | NUR ---
PT DISCHARGED TO HOME. IV REMOVED PRIOR TO . MEDS SENT INTO [facility] AND PT EDUCATED REGARDING ABX AND NEW MEDS. PT DRESSED BY SELF. STAFF TOOK PT DOWN IN WC TO BE TAKEN HOME BY CAR. PT TOLD TO FOLLOW UP WITH PCP FRIDAY.
== END 2019-10-10 12:02 | disposition home or self-care (01) | DRG 872 ==
LOC: ER 15:41 → ICUW 21:43 → MEDS 10-09 13:10 → ENPENDDIS 10-10 10:00 → MEDS 10-10 12:02
PROVIDERS: Emergency Medicine; Internal Medicine; Nurse Practitioner Acute Care; Physician Assistant; ADMIT Internal Medicine
DX: A41.9 Sepsis, unspecified organism (principal); K57.32 Diverticulitis of large intestine without perforation or abscess without bleeding; R65.20 Severe sepsis without septic shock; E03.9 Hypothyroidism, unspecified; E11.9 Type 2 diabetes mellitus without complications; R79.89 Other specified abnormal findings of blood chemistry; I95.9 Hypotension, unspecified; I10 Essential (primary) hypertension; K21.9 Gastro-esophageal reflux disease without esophagitis; Z88.6 Allergy status to analgesic agent; Z88.1 Allergy status to other antibiotic agents; Z88.5 Allergy status to narcotic agent; Z88.2 Allergy status to sulfonamides; Z87.891 Personal history of nicotine dependence; Z79.84 Long term (current) use of oral hypoglycemic drugs; Z79.899 Other long term (current) drug therapy
CPT/HCPCS: 36415; 71045; 74177; 80053; 80074; 81001; 82140; 82947; 83605; 83690; 83735; 83880; 84145; 84484; 85025; 85610; 85730; 87086; 93005; 93010; 96361; 96365; 99285-25; A9270; J0696; J3475; J7030; Q9967

== ENCOUNTER → 2019-10-08 | Outpatient (CLI) | payer MEDICARE ==
[~2019-10-08] MED LIST changes: +AMOXICILLIN-CL1 EACH; +VISBIOME 112.51 EACH PO
[2019-10-08 13:49] LABS: BASOPHILS ABSOLUTE AUTO 0.02 K/mm3 (0.00-0.23); BASOPHILS PERCENT AUTO 0 % (0-2); EOSINOPHILS ABSOLUTE AUTO 0.01 K/mm3 (0.00-0.68); EOSINOPHILS PERCENT AUTO 0 % (0-6); Hematocrit 40.2 % (33.0-51.0); Hemoglobin 13.5 g/dL (11.5-16.0); IMMATURE GRAN ABSOLUTE AUTO 0.06 K/mm3 (0.00-0.10); IMMATURE GRAN PERCENT AUTO 1 % (0-1); LYMPHOCYTES ABSOLUTE AUTO 0.29 K/mm3 (0.84-5.20); LYMPHOCYTES PERCENT AUTO 3 % (21-46); MONOCYTES ABSOLUTE AUTO 0.66 K/mm3 (0.16-1.47); MONOCYTES PERCENT AUTO 6 % (4-13); Mean Corpuscular HGB 27.6 pg (26.0-34.0); Mean Corpuscular HGB Conc 33.6 g/dL (31.5-36.5); Mean Corpuscular Volume 82 fL (80-100); Mean Platelet Volume 8.7 fL (9.1-12.4); NEUTROPHILS ABSOLUTE AUTO 9.92 K/mm3 (1.96-9.15); NEUTROPHILS PERCENT AUTO 91 % (41-73); Platelet Count 250 K/mm3 (150-400); RDW Coefficient Variation 15.3 % (11.7-14.2); RDW Standard Deviation 45.8 fL (35.1-46.3); Red Blood Cell Count 4.89 M/mm3 (3.80-5.20); White Blood Cell Count 10.96 K/mm3 (4.00-11.30)
[2019-10-08 14:05] LABS: SLIDE REVIEW Yes
[2019-10-08 14:06] LABS: Albumin, Blood 3.8 g/dL (3.4-5.0); Albumin/Globulin Ratio 1.1 (0.8-1.8); Bilirubin, Total 2.5 mg/dL (0.1-1.0); Bun/Creatinine Ratio 14.3 (12.0-20.0); Calcium, Blood 8.8 mg/dL (8.5-10.1); Creatinine, Blood 0.98 mg/dL (0.40-1.00); Globulin, Blood 3.5 g/dL (2.2-4.0); Potassium, Blood 3.7 mmol/L (3.5-5.5); Total Protein, Blood 7.3 g/dL (6.4-8.2)
== END | disposition home or self-care (01) ==
PROVIDERS: Physician Assistant
DX: R10.9 Unspecified abdominal pain (principal)

== ENCOUNTER → 2020-06-05 | Outpatient (CLI) | payer MEDICARE ==
[~2020-06-05] MED LIST changes: +AMOXICILLIN-CL1 EACH; +VISBIOME 112.51 EACH PO
== END ==
LOC: LAB SHORT 15:22 → LAB EV 15:22
DX: N39.0 Urinary tract infection, site not specified (principal)
CPT/HCPCS: 87086

== ENCOUNTER 2021-08-10 14:30 | Emergency (ER) | payer MEDICARE ==
[~2021-08-10] VITALS: Ht 167.6 cm; Wt 81.7 kg
[2021-08-10 15:05] LABS: BASOPHILS ABSOLUTE AUTO 0.04 K/mm3 (0.00-0.23); BASOPHILS PERCENT AUTO 1 % (0-2); EOSINOPHILS ABSOLUTE AUTO 0.06 K/mm3 (0.00-0.68); EOSINOPHILS PERCENT AUTO 1 % (0-6); Hemoglobin 13.7 g/dL (11.5-16.0); IMMATURE GRAN ABSOLUTE AUTO 0.01 K/mm3 (0.00-0.10); IMMATURE GRAN PERCENT AUTO 0 % (0-1); LYMPHOCYTES ABSOLUTE AUTO 2.01 K/mm3 (0.84-5.20); LYMPHOCYTES PERCENT AUTO 31 % (21-46); MONOCYTES ABSOLUTE AUTO 0.58 K/mm3 (0.16-1.47); MONOCYTES PERCENT AUTO 9 % (4-13); Mean Corpuscular HGB 27.8 pg (26.0-34.0); Mean Corpuscular HGB Conc 32.6 g/dL (31.5-36.5); Mean Corpuscular Volume 85 fL (80-100); NEUTROPHILS ABSOLUTE AUTO 3.87 K/mm3 (1.96-9.15); NEUTROPHILS PERCENT AUTO 59 % (41-73); Platelet Count 252 K/mm3 (150-400); RDW Coefficient Variation 14.7 % (11.7-14.2); RDW Standard Deviation 45.5 fL (35.1-46.3); Red Blood Cell Count 4.93 M/mm3 (3.80-5.20); White Blood Cell Count 6.57 K/mm3 (4.00-11.30)
[2021-08-10 15:22] LABS: Alanine Aminotransfer (ALT/SGP 18 U/L (12-78); Albumin, Blood 3.4 g/dL (3.4-5.0); Alk Phos 68 U/L (50-136); Anion Gap 4 mmol/L (6-16); Aspartate Aminotrans (AST/SGOT 10 U/L (12-37); Bilirubin, Total 0.3 mg/dL (0.1-1.0); Blood Urea Nitrogen 14 mg/dL (8-24); Bun/Creatinine Ratio 16.9 (12.0-20.0); CO2, Blood 28 mmol/L (21-32); Calcium, Blood 8.9 mg/dL (8.5-10.1); Chloride, Blood 102 mmol/L (98-108); Creatinine, Blood 0.83 mg/dL (0.40-1.00); Globulin, Blood 3.5 g/dL (2.2-4.0); Glomerular Filtration Rate >60 (60-); Glucose, Blood 110 mg/dL (70-99); Potassium, Blood 4.4 mmol/L (3.5-5.5); Sodium, Blood 134 mmol/L (136-145); Total Protein, Blood 6.9 g/dL (6.4-8.2)
[2021-08-10] MEDS ORDERED: ONDA4 PO (16:56)
== END 2021-08-10 17:11 | disposition home or self-care (01) ==
LOC: ER 14:30
PROVIDERS: Emergency Medicine
DX: R11.0 Nausea (principal); I10 Essential (primary) hypertension; E03.9 Hypothyroidism, unspecified; K21.9 Gastro-esophageal reflux disease without esophagitis; Z87.891 Personal history of nicotine dependence
CPT/HCPCS: 36415; 80053; 83690; 84484; 85025; 93005; 93010; 99284-25; J7030

== ENCOUNTER 2023-11-20 12:17 | Emergency (ER) | payer MEDICARE ==
[~2023-11-20] VITALS: Ht 162.6 cm; Wt 59.0 kg
[~2023-11-20 12:17] MED LIST changes: +ONDA4 PO
[2023-11-20 12:50] LABS: BASOPHILS ABSOLUTE AUTO 0.03 K/mm3 (0.00-0.23); BASOPHILS PERCENT AUTO 0 % (0-2); EOSINOPHILS ABSOLUTE AUTO 0.01 K/mm3 (0.00-0.68); EOSINOPHILS PERCENT AUTO 0 % (0-6); Hematocrit 43.5 % (33.0-51.0); Hemoglobin 14.9 g/dL (11.5-16.0); IMMATURE GRAN ABSOLUTE AUTO 0.05 K/mm3 (0.00-0.10); IMMATURE GRAN PERCENT AUTO 1 % (0-1); LYMPHOCYTES ABSOLUTE AUTO 1.17 K/mm3 (0.84-5.20); LYMPHOCYTES PERCENT AUTO 13 % (21-46); MONOCYTES ABSOLUTE AUTO 0.57 K/mm3 (0.16-1.47); MONOCYTES PERCENT AUTO 6 % (4-13); Mean Corpuscular HGB 29.6 pg (26.0-34.0); Mean Corpuscular HGB Conc 34.3 g/dL (31.5-36.5); Mean Corpuscular Volume 86 fL (80-100); Mean Platelet Volume 9.3 fL (9.1-12.4); NEUTROPHILS ABSOLUTE AUTO 7.12 K/mm3 (1.96-9.15); NEUTROPHILS PERCENT AUTO 80 % (41-73); Platelet Count 230 K/mm3 (150-400); RDW Coefficient Variation 13.6 % (11.7-14.2); RDW Standard Deviation 42.5 fL (35.1-46.3); Red Blood Cell Count 5.04 M/mm3 (3.80-5.20); White Blood Cell Count 8.95 K/mm3 (4.00-11.30)
[2023-11-20 13:07] LABS: Albumin, Blood 3.5 g/dL (3.4-5.0); Albumin/Globulin Ratio 1.1 (0.8-1.8); Bilirubin, Total 0.5 mg/dL (0.1-1.0); Calcium, Blood 9.8 mg/dL (8.5-10.1); Creatinine, Blood 0.68 mg/dL (0.40-1.00); Globulin, Blood 3.1 g/dL (2.2-4.0); Potassium, Blood 3.2 mmol/L (3.5-5.5); Total Protein, Blood 6.6 g/dL (6.4-8.2)
[2023-11-20] MEDS ORDERED: Lactated Ringer's 1,000 ML IV ONE (14:25)
[2023-11-20] MEDS ORDERED: Potassium Chloride 20 MEQ TabCR PO ONE (14:25)
[2023-11-20 15:19] LABS: Source, Urine Straight Cath
[2023-11-20 15:23] LABS: Appearance, Urine Clear (Clear); Bilirubin, Urine Neg (Neg); Blood, Urine Neg (Neg); Color, Urine Yellow (P-Yellow); Glucose Qualitative, Urine Neg (Neg); Ketones, Urine 1+ (Neg); Leukocyte Esterase, Urine Neg (Neg); Nitrite, Urine Neg (Neg); Protein, Urine 1+ (Neg); Urobilinogen, Urine 1+ (Normal)
[2023-11-20 16:15] VITALS: BP 108/78
== END 2023-11-20 16:23 | disposition home or self-care (01) ==
LOC: ER 12:17
PROVIDERS: Emergency Medicine; Student in an Organized Health Care Education/Training Program
DX: S06.9X9A Unspecified intracranial injury with loss of consciousness of unspecified duration, initial encounter (principal); E87.6 Hypokalemia; E87.1 Hypo-osmolality and hyponatremia; R53.1 Weakness; W18.30XA Fall on same level, unspecified, initial encounter; I10 Essential (primary) hypertension; Z79.84 Long term (current) use of oral hypoglycemic drugs; Z79.899 Other long term (current) drug therapy; Z88.2 Allergy status to sulfonamides; Z88.5 Allergy status to narcotic agent; Z88.6 Allergy status to analgesic agent; Z88.1 Allergy status to other antibiotic agents; Z88.8 Allergy status to other drugs, medicaments and biological substances
CPT/HCPCS: 70450; 80053; 85025; 93005; 93010; 96360; 99285-25; A9270; J7120; P9612

== ENCOUNTER 2024-08-13 12:04 | Emergency (ER) | payer OTHER ==
[~2024-08-13] VITALS: Ht 167.6 cm; Wt 68.0 kg
[2024-08-13 12:45] LABS: BASOPHILS ABSOLUTE AUTO 0.04 K/mm3 (0.00-0.23); BASOPHILS PERCENT AUTO 1 % (0-2); EOSINOPHILS ABSOLUTE AUTO 0.01 K/mm3 (0.00-0.68); EOSINOPHILS PERCENT AUTO 0 % (0-6); IMMATURE GRAN ABSOLUTE AUTO 0.05 K/mm3 (0.00-0.10); IMMATURE GRAN PERCENT AUTO 1 % (0-1); LYMPHOCYTES ABSOLUTE AUTO 1.14 K/mm3 (0.84-5.20); LYMPHOCYTES PERCENT AUTO 17 % (21-46); MONOCYTES ABSOLUTE AUTO 0.44 K/mm3 (0.16-1.47); MONOCYTES PERCENT AUTO 7 % (4-13); Mean Corpuscular HGB 29.1 pg (26.0-34.0); Mean Corpuscular HGB Conc 34.2 g/dL (31.5-36.5); Mean Corpuscular Volume 85 fL (80-100); NEUTROPHILS ABSOLUTE AUTO 4.86 K/mm3 (1.96-9.15); NEUTROPHILS PERCENT AUTO 74 % (41-73); NRBC ABSOLUTE 0.02 K/mm3 (0.00-0.02); NRBC Auto 0.3 /100 WBC (0.0-0.2); RDW Coefficient Variation 14.5 % (11.7-14.2); RDW Standard Deviation 45.1 fL (35.1-46.3); Red Blood Cell Count 4.46 M/mm3 (3.80-5.20); White Blood Cell Count 6.54 K/mm3 (4.00-11.30)
[2024-08-13 13:07] LABS: Mean Platelet Volume 9.8 fL (9.1-12.4); Platelet Count 158 K/mm3 (150-400)
[2024-08-13 13:11] LABS: Albumin, Blood 3.2 g/dL (3.4-5.0); Albumin/Globulin Ratio 1.1 (0.8-1.8); Bilirubin, Total 0.8 mg/dL (0.1-1.0); Bun/Creatinine Ratio 10.8 (12.0-20.0); Calcium, Blood 9.5 mg/dL (8.5-10.1); Creatinine, Blood 0.74 mg/dL (0.40-1.00); Globulin, Blood 2.9 g/dL (2.2-4.0); Potassium, Blood 3.2 mmol/L (3.5-5.5); Total Protein, Blood 6.1 g/dL (6.4-8.2)
[2024-08-13 13:19] VITALS: BP 141/71
[2024-08-13] MEDS ORDERED: Potassium Chloride 20 MEQ/15 ML UDC PO ONE (13:40)
[2024-08-13] MEDS ORDERED: Magnesium Sulf 2 GM/Water 50ML 50 ML IV ONE (13:40)
== END 2024-08-13 15:43 | disposition home or self-care (01) ==
LOC: ER 12:04
PROVIDERS: Student in an Organized Health Care Education/Training Program
DX: R55 Syncope and collapse (principal); E86.0 Dehydration; E87.6 Hypokalemia; E83.42 Hypomagnesemia; K21.9 Gastro-esophageal reflux disease without esophagitis; I48.91 Unspecified atrial fibrillation; E11.9 Type 2 diabetes mellitus without complications; E03.9 Hypothyroidism, unspecified; Z87.891 Personal history of nicotine dependence; Z79.84 Long term (current) use of oral hypoglycemic drugs; Z79.899 Other long term (current) drug therapy; Z88.6 Allergy status to analgesic agent; Z88.1 Allergy status to other antibiotic agents; Z88.2 Allergy status to sulfonamides; Z88.5 Allergy status to narcotic agent; Z88.8 Allergy status to other drugs, medicaments and biological substances
CPT/HCPCS: 71046; 80053; 83735; 83880; 84484; 85025; 93005; 93010; 96365; 99285-25; A9270; J3475

== ENCOUNTER 2024-10-01 20:09 | Emergency (ER) | payer OTHER ==
[~2024-10-01] VITALS: Ht 157.5 cm; Wt 49.9 kg
[2024-10-01 20:18] VITALS: BP 160/87
[2024-10-01] MEDS ORDERED: Fluorescein Sod 1MG Opth Strips LEFTEYE ONE (21:50)
[2024-10-01] MEDS ORDERED: Tetracaine HCl/Pf 0.5% Opth Soln 4 ml LEFTEYE ONE (21:50)
[2024-10-01] MEDS ORDERED: BACITRACIN-POL3.5 GM TOP (22:27)
== END 2024-10-01 22:41 | disposition home or self-care (01) ==
LOC: ER 20:09
DX: H10.9 Unspecified conjunctivitis (principal); Z88.8 Allergy status to other drugs, medicaments and biological substances; Z88.2 Allergy status to sulfonamides; Z88.1 Allergy status to other antibiotic agents; Z88.5 Allergy status to narcotic agent; Z79.84 Long term (current) use of oral hypoglycemic drugs; Z79.890 Hormone replacement therapy; I10 Essential (primary) hypertension; K21.9 Gastro-esophageal reflux disease without esophagitis; I48.91 Unspecified atrial fibrillation; E11.9 Type 2 diabetes mellitus without complications; Z87.891 Personal history of nicotine dependence
CPT/HCPCS: 99282; A9270